=== PATIENT | male | born 1960 | race Caucasian/White ===

== ENCOUNTER 2018-08-09 10:07 | Emergency (ER) | payer OTHER ==
[~2018-08-09 10:07] MED LIST: ASP325 PO; ASPI-879 PO; CEP500 PO; LOR5/325 PO; METO50TA19 PO; TUM500 PO
[2018-08-09] MEDS ORDERED: DABI150C3 PO (10:19)
[2018-08-09] MEDS ORDERED: METO50TA19 PO (10:19)
[2018-08-09] MEDS ORDERED: PANT40TA65 (10:19)
[2018-08-09] MEDS ORDERED: AMLO-111 PO (10:19)
[2018-08-09 10:45] VITALS: BP 141/84
--- NOTE | 2018-08-09 10:46 | ER Report ---
History and Physical Time Seen By MD: 10:30 Hx. of Stated Complaint: PT REPORTS L UPPER LEG NUMBNESS HPI/ROS CHIEF COMPLAINT: left leg numbness HISTORY OF PRESENT ILLNESS: pt is 3 d s/p cardiac ablation, after having gone bilateral femoral vein catheterizations and 5 hour procedure. Pt noted yesterday that he has lateral thigh intermittent numbness and paresthesias without pain, weakness, swelling, or change in temperature of leg. REVIEW OF SYSTEMS: Respiratory: No cough, no dyspnea. Cardiovascular: No chest pain, no palpitations. Gastrointestinal: No vomiting, no abdominal pain. Musculoskeletal: No back pain. Remainder of the 14 system rev: Yes Allergies: Coded Allergies: No Known Drug Allergies (Unverified , 08/09/18) Home Meds Reported Medications Pantoprazole Sodium (PANTOPRAZOLE SODIUM) 40 Mg Tablet.dr, QDAY 08/09/18 Dabigatran Etexilate Mesylate (PRADAXA) 150 Mg Capsule, 150 MG PO BID, CAPSULE 08/09/18 Amlodipine Besylate (AMLODIPINE BESYLATE) 5 Mg Tablet, 1 TAB PO QDAY, TAB 08/09/18 Metoprolol Succinate (METOPROLOL SUCCINATE) 50 Mg Tab.er.24h, 1 TAB PO QDAY, TAB 08/09/18 Discontinued Reported Medications Metoprolol Succinate (METOPROLOL SUCCINATE) 50 Mg Tab.er.24h, 2 TAB PO QDAY, TAB 02/08/16 Aspirin (Aspirin) 325 Mg Tab, 1 TAB PO DAILY 08/17/12 Reviewed Nurses Notes: Yes Hx Smoking: No Smoking Status: Never Smoker Hx Substance Use Disorder: No Constitutional Vital Sign - Last 24 Hours 08/09/18 08/09/18 10:12 10:45 Temp 97.6 Pulse 74 67 Resp 18 18 B/P (MAP) 147/83 141/84 (103) Pulse Ox 94 94 O2 Delivery Room Air Room Air Physical Exam General Appearance: The patient is alert, has no immediate need for airway protection and no current signs of toxicity. [ ] Eyes: Pupils equal and round no injection. Respiratory: Chest is non tender, lungs are clear to auscultation. Cardiac: regular rate and rhythm Musculoskeletal: Extremities have full range of motion and are non tender. Skin: ecchymosis L groin as expected after catheterization, though no palpable hematoma. Slight decrease to lt touch in lateral femoral cutaneous nerve distribution. 2+ DP pulse, 5/5 ms DIFFERENTIAL DIAGNOSIS: After history and physical exam differential diagnosis was considered for cauda equina, dvt, motor nerve compression or other emergent etiology. Medical Decision Making ED Course/Re-evaluation ED Course Pt has lat fem cut n neuropraxia. No e/o dvt, arterial insufficiency, cauda equina or other emergent etiology. Pt to f/u with surgeon. Decision to Disposition Date: Aug 09, 2018 Decision to Disposition Time: 10:50 Depart Departure Latest Vital Signs Vital Signs Date Time Temp Pulse Resp B/P (MAP) Pulse Ox O2 Delivery O2 Flow Rate FiO2 08/09/18 10:45 67 18 141/84 (103) 94 Room Air 08/09/18 10:12 97.6 Impression: Primary Impression: Neuropraxia of left lower extremity Condition: Improved Disposition: HOME OR SELF-CARE Referrals: RAYMUNDO ACEVEDO MD (PCP) Additional Instructions: As we discussed follow up with your customs compliance analyst for re-evaluation, or return for new weakness or any concerns. Problem Qualifiers Primary Impression: Neuropraxia of left lower extremity Encounter type: initial encounter Qualified Codes: S84.92XA - Injury of unspecified nerve at lower leg level, left leg, initial encounter RAYMOND HECK MD Aug 09, 2018 10:46
== END 2018-08-09 10:48 | disposition home or self-care (01) ==
LOC: ER 10:45
DX: S84.92XA Injury of unspecified nerve at lower leg level, left leg, initial encounter (principal)
CPT/HCPCS: 99281